=== PATIENT | male | born 1990 | race Native Hawaiian/Other Pacific Islander ===

== ENCOUNTER 2020-01-16 06:33 | Emergency (ER) | payer BC ==
[~2020-01-16] VITALS: Ht 185.4 cm; Wt 104.3 kg
[2020-01-16 07:55] VITALS: BP 119/74; TEMP 98.6
== END 2020-01-16 07:55 | disposition home or self-care (01) ==
LOC: ED 06:33
DX: J02.0 Streptococcal pharyngitis (principal); F17.210 Nicotine dependence, cigarettes, uncomplicated
CPT/HCPCS: 87502; 87651; 99283

== ENCOUNTER 2022-02-15 20:58 | Emergency (ER) | payer OTHER ==
[~2022-02-15] VITALS: Ht 182.9 cm; Wt 101.2 kg
[2022-02-15 22:08] VITALS: BP 124/67; TEMP 98.2
== END 2022-02-15 22:10 | disposition home or self-care (01) ==
LOC: ED 20:58
PROC: 0HQFXZZ Repair Right Hand Skin, External Approach (ICD-10-PCS; principal; 2022-02-15)
DX: S66.821A Laceration of other specified muscles, fascia and tendons at wrist and hand level, right hand, initial encounter (principal); W26.8XXA Contact with other sharp object(s), not elsewhere classified, initial encounter; Y92.89 Other specified places as the place of occurrence of the external cause
CPT/HCPCS: 90471; 90715; 99283; J7040

== ENCOUNTER 2023-01-14 13:31 | Outpatient (CLI) | payer OTHER | END 2023-01-14 21:23 | disposition home or self-care (01) | LOC: MRI 13:31 | PROVIDERS: ATTEND Internal Medicine | DX: M89.9 Disorder of bone, unspecified (principal) ==

== ENCOUNTER 2023-02-01 14:03 | Outpatient (CLI) | payer OTHER | END 2023-02-01 21:24 | disposition home or self-care (01) | LOC: MRI 14:03 | PROVIDERS: ATTEND Nurse Practitioner Family | DX: M89.9 Disorder of bone, unspecified (principal) | CPT/HCPCS: A9576 ==

== ENCOUNTER 2023-02-18 10:23 | Observation (INO) | payer OTHER ==
[~2023-02-18] VITALS: Ht 185.4 cm; Wt 93.0 kg
[2023-02-18] VITALS (12 sets, daily range): BP systolic 19–144; BP diastolic 56–79; TEMP 97.8–99.2; Ht 185.4 cm; Wt 93.0 kg
[2023-02-18 12:39] LABS: PLATELET COUNT 278 K/uL (142-355)
[2023-02-18 12:43] LABS: POTASSIUM 4.7 mmol/L (3.6-5.2)
[2023-02-18] MEDS ORDERED: GABA300C2 PO (17:59)
[2023-02-18] MEDS ORDERED: CLON1TAB18 PO (17:59)
[2023-02-18] MEDS ORDERED: DULO30CA PO (18:00)
[2023-02-18] MEDS ORDERED: CYCL10TA35 PO (18:01)
[2023-02-18] MEDS ORDERED: NAPROXEN EC500 MG PO (18:02)
[2023-02-18] MEDS ORDERED: VIAGRA100 MG PO (18:06)
[2023-02-18] MEDS ORDERED: BUPR8SUB2 SL (18:08)
== END 2023-02-18 18:16 | disposition left against medical advice (07) ==
LOC: ED 10:23 → MED/SURG 15:10
PROVIDERS: ADMIT Family Medicine; ATTEND Internal Medicine
DX: J68.3 Other acute and subacute respiratory conditions due to chemicals, gases, fumes and vapors (principal); T54.91XA Toxic effect of unspecified corrosive substance, accidental (unintentional), initial encounter; T54.1X1A Toxic effect of other corrosive organic compounds, accidental (unintentional), initial encounter; Y92.89 Other specified places as the place of occurrence of the external cause; F41.1 Generalized anxiety disorder; G89.4 Chronic pain syndrome; D72.828 Other elevated white blood cell count; J68.4 Chronic respiratory conditions due to chemicals, gases, fumes and vapors
CPT/HCPCS: 36415; 36600; 80053; 80307; 81002; 82805; 83605; 85027; 87040; 94664; 96365; 96366; 96375; 99221; 99285; G0378; J0696; J1885; J2930